=== PATIENT | male | born 1980 | race Caucasian/White ===

== ENCOUNTER 2017-04-22 21:25 | Emergency (ER) | payer SELFPAY ==
[~2017-04-22] VITALS: Ht 185.4 cm; Wt 83.2 kg
[2017-04-22] MEDS ORDERED: LIDOCAINE 1%, 20ML ONE (22:30)
[2017-04-22] MEDS ORDERED: LIDOCAINE 1%, 20ML SQ ONE (22:30)
[2017-04-22] MEDS ORDERED: BACITRACIN ZINC OINT 500U/GM, 0.9 GM ONE ×2 (23:11→23:13)
[2017-04-22 23:33] VITALS: BP 122/76
== END 2017-04-22 23:35 | disposition home or self-care (01) ==
LOC: ED 23:29
DX: S51.812A Laceration without foreign body of left forearm, initial encounter (principal); S41.112A Laceration without foreign body of left upper arm, initial encounter; X58.XXXA Exposure to other specified factors, initial encounter; Y93.89 Activity, other specified; Y92.89 Other specified places as the place of occurrence of the external cause; Y99.8 Other external cause status
CPT/HCPCS: 12002; 12032